=== PATIENT | female | born 1980 ===

== ENCOUNTER 2019-07-16 07:45 | Inpatient (IN) | payer OTHER ==
[~2019-07-16] VITALS: Ht 162.6 cm; Wt 70.3 kg
[2019-07-16] MEDS ORDERED: CLARITIN10 M1 PO (09:51)
[2019-07-16] MEDS ORDERED: PROAIR HFA8.5 GM IH (09:51)
== END 2019-07-21 14:53 | DRG 743 ==
LOC: OB/GYN 07-18 07:00 → O/R 07-18 07:45 → OB/GYN 07-18 07:45 → O/R 07-18 08:47 → OB/GYN 07-18 15:18
PROVIDERS: ADMIT Obstetrics & Gynecology Obstetrics
PROC: 3E0F7GC Introduction of Other Therapeutic Substance into Respiratory Tract, Via Natural or Artificial Opening (ICD-10-PCS; 2019-07-18)
PROC: 0UT90ZZ Resection of Uterus, Open Approach (ICD-10-PCS; principal; 2019-07-18 07:00)
DX: D25.1 Intramural leiomyoma of uterus (principal); D25.0 Submucous leiomyoma of uterus; N72 Inflammatory disease of cervix uteri; N84.0 Polyp of corpus uteri; N73.6 Female pelvic peritoneal adhesions (postinfective); J45.909 Unspecified asthma, uncomplicated